=== PATIENT | male | born 1980 | race African-American/Black ===

== ENCOUNTER → 2017-03-08 | Outpatient (CLI) | payer OTHER ==
--- NOTE | ~2017-03-08 | NM19 ---
[facility] A Service of [facility] & [facility] RADIOLOGY TEXT RESULTS PATIENT: ZOILA SCHWAB LOCATION: CN : 80 UNIT #: [id number] AGE: [address]: Scott Ramos MD SEX: M ORDER DR: [id number] [facility] [address] [place], [place] [address] [id number] O MR#: [id number] Acc #: [id number] NAME: ZOILA SCHWAB : 1980 SEX: M STUDY DATE/TIME: 03/08/2017 10:45 UNIT: [facility] ROOM: STUDY DESCRIPTION: OR Gastric Emptying Study Attending Physician: Scott Ramos M.D. Referring Physician: Scott Ramos M.D. Ordering Physician: Scott Ramos M.D. Primary Care Physician: Jolynn Lucero Aprn MEDICAL IMAGING REPORT This report is preliminary unless electronic signature is present EXAM Gastric emptying study, 03/08/2017. HISTORY Epigastric pain, nausea, weight loss; symptoms for 6 months. TECHNIQUE Patient was given 524 mcCi of technetium-99m sulfur colloid mixed with oatmeal and water. Activity was measured in the stomach over time. FINDINGS At 60 minutes, the stomach was 77% empty, and at 120 minutes, it was 96% empty. IMPRESSION Normal gastric emptying. The stomach was 96% empty by 120 minutes. Dictated by... Ghanshyam Hernandez M.D. THIS IS AN ELECTRONICALLY VERIFIED REPORT Ghanshyam Hernandez M.D. at 03/10/2017 7:14 AM Rebel TD: 03/09/2017 19:08 JOB #: [id number] MEDICAL IMAGING REPORT Page 1 of 1 COPY
== END | disposition home or self-care (01) ==
LOC: CNUC 02-22 06:14
DX: R11.2 Nausea with vomiting, unspecified (principal)
CPT/HCPCS: 78264; A9541